=== PATIENT | male | born 1995 ===

== ENCOUNTER 2024-08-13 01:04 | Emergency (ER) | payer BC ==
[2024-08-13] MEDS: Diphtheria,Pertussis(Acell),Tetanus Vaccine 0.5 ML Syringe IM ONE (01:21)
[2024-08-13] MEDS: Lidocaine/Epineph/Tetracaine 3 ML Syringe TOP ONE (01:23)
[2024-08-13 03:15] VITALS: BP 108/66; PULSE 82
== END 2024-08-13 03:15 | disposition home or self-care (01) ==
LOC: MW.ED 01:04
DX: S00.83XA Contusion of other part of head, initial encounter (principal); S70.311A Abrasion, right thigh, initial encounter; Z23 Encounter for immunization; Y93.89 Activity, other specified; Y04.0XXA Assault by unarmed brawl or fight, initial encounter
CPT/HCPCS: 70486; 90471; 90715; 99284; A9270